=== PATIENT | male | born 1955 | race Caucasian/White ===

== ENCOUNTER 2020-03-07 23:28 | Emergency (ER) | payer SELFPAY | END 2020-03-07 23:54 | disposition home or self-care (01) | LOC: NAV ERS 23:28 | DX: L03.211 Cellulitis of face (principal); Z85.828 Personal history of other malignant neoplasm of skin | CPT/HCPCS: 99283 ==

== ENCOUNTER 2020-03-09 11:29 | Emergency (ER) | payer SELFPAY | END 2020-03-09 13:01 | disposition home or self-care (01) | LOC: NAV ERS 11:29 | DX: L03.211 Cellulitis of face (principal); L03.811 Cellulitis of head [any part, except face] | CPT/HCPCS: 99282 ==